=== PATIENT | male | born 1975 | race Caucasian/White ===

== ENCOUNTER 2020-01-04 09:46 | Emergency (ER) | payer MEDICAID ==
[~2020-01-04] VITALS: Ht 182.9 cm; Wt 97.2 kg
[~2020-01-04 09:46] MED LIST: APIX5TAB PO; ASPI81TA45 PO; ATOR40TA78 PO; CEPH-368 PO; ESCI10TA PO; FERR-51 PO; GABA300C10 PO; GLYB1.252 PO; HYDR-3241 PO; HYDR-826 PO; INSU100I13 SQ-INSULIN; LOSA25TA25 PO; METF500T17 PO; METO25TA35 PO; METO25TA91 PO; OXYC15TA60 PO; TICA90TA PO; none per pt
--- NOTE | 2020-01-04 10:20 | NUR ---
PT CAME IN CO OF BODY ACHES, DIZZINIESS, NAUSEA, MURGUIA, AND SOB X 1 WEEK. HE WAS AT A WEDDING A WEEK AGO IN [place] AND "POSSIBLY WAS EXPOSED TO COVID". PT STATES HE HAS BEEN FEELING WORSE THE WEEK GOES ON. PT RESTING IN [facility], CONNECTED TO ALL MONITORING EQUIPMENT. CALL LIGHT WITHIN REACH. WARM BLANKETS PROVIDED.
[2020-01-04 10:46] LABS: BASOPHILS % (AUTO) 0 % (0-1); EOSINOPHILS % (AUTO) 0 % (1-7); LYMPHOCYTES % (AUTO) 11 % (22-44); MEAN CORPUSCULAR HEMOGLOBIN 31.5 pg (27.5-34.5); MEAN CORPUSCULAR HGB CONC 35.1 g/dL (33.2-36.2); MEAN PLATELET VOLUME 7.4 fL (7.4-10.4); MONOCYTES % (AUTO) 7 % (2-9); NEUTROPHILS % (AUTO) 81 % (42-75); PLATELET COUNT 253 x10^3/uL (130-400)
--- NOTE | 2020-01-04 10:53 | NUR ---
PT RESTING IN [facility]. VSS. NAD. NO NEEDS AT THIS TIME
[2020-01-04 10:58] LABS: ALANINE AMINOTRANSFERASE 34 U/L (12-78); ALBUMIN 1.8 g/dL (3.4-5.0); ANION GAP 15 mmol/L (5-15); CALCIUM 7.9 mg/dL (8.5-10.1); CHLORIDE 99 mmol/L (98-107); CREATININE 1.08 mg/dL (0.7-1.3)
[2020-01-04 11:02] LABS: MD SCAN
[2020-01-04 11:05] LABS: ALKALINE PHOSPHATASE 117 U/L (45-117); BILIRUBIN,TOTAL 0.8 mg/dL (0.2-1.0); TOTAL PROTEIN 7.3 g/dL (6.4-8.2)
[2020-01-04 12:45] VITALS: BP 137/79
== END 2020-01-04 12:47 | disposition home or self-care (01) ==
LOC: ED 12:38
DX: J12.9 Viral pneumonia, unspecified (principal); B34.9 Viral infection, unspecified; R00.0 Tachycardia, unspecified; E11.9 Type 2 diabetes mellitus without complications; I25.10 Atherosclerotic heart disease of native coronary artery without angina pectoris; I25.2 Old myocardial infarction; Z98.61 Coronary angioplasty status
CPT/HCPCS: 71045; 80053; 82728; 83615; 84145; 85025; 86140; 87635; 99284

== ENCOUNTER 2020-04-20 14:07 | Emergency (ER) | payer MEDICAID ==
[~2020-04-20] VITALS: Ht 182.9 cm; Wt 95.4 kg
[~2020-04-20 14:07] MED LIST changes: -ESCI10TA PO; +ESCI10TA97 PO
--- NOTE | 2020-04-20 14:46 | NUR ---
Report from ARNOL Barcenas. [facility].
[2020-04-20] MEDS ORDERED: METHOCARBAMOL 750 MG TABLET PO ONE (15:00)
[2020-04-20] MEDS ORDERED: KETOROLAC 30 MG/1 ML IM ONE (15:00)
[2020-04-20] MEDS ORDERED: OXYcodone/APAP 5/325MG TABLET PO ONE (15:00)
[2020-04-20] MEDS ORDERED: KETOROLAC 30 MG/1 ML ONE (15:11)
[2020-04-20] MEDS ORDERED: OXYcodone/APAP 5/325MG TABLET ONE (15:11)
[2020-04-20] MEDS ORDERED: METHOCARBAMOL 500 MG TABLET ONE (15:11)
--- NOTE | 2020-04-20 15:14 | NUR ---
Pt at imaging.
--- NOTE | 2020-04-20 15:30 | NUR ---
Pt back from imaging, medicated per [facility]MAR.
--- NOTE | 2020-04-20 16:56 | NUR ---
Pt to CT again to scan the rest of his back, just lumbar was scanned earlier. Shows compression fracture of L1 but pt reports this is an old injury.
--- NOTE | 2020-04-20 17:45 | NUR ---
Updated pt on results and plan- TLSO back brace- someone will be coming to put that on then he will be discharge.
--- NOTE | 2020-04-20 18:19 | NUR ---
Rep from [facility] here, applied brace and demonstrated/explained to pt how to use and adjust it.
--- NOTE | 2020-04-20 18:27 | NUR ---
Pt agrees with and understands discharge plan and instructions. Will follow up with neurosurgery and wear brace until they state otherwise.
[2020-04-20 18:28] VITALS: BP 130/82
== END 2020-04-20 18:30 | disposition home or self-care (01) ==
LOC: ED 18:23
DX: S32.011A Stable burst fracture of first lumbar vertebra, initial encounter for closed fracture (principal); E11.9 Type 2 diabetes mellitus without complications; I25.2 Old myocardial infarction; I25.10 Atherosclerotic heart disease of native coronary artery without angina pectoris; X58.XXXA Exposure to other specified factors, initial encounter; Y93.89 Activity, other specified; Y92.89 Other specified places as the place of occurrence of the external cause; Y99.8 Other external cause status
CPT/HCPCS: 72072; 72110; 72131; 96372; 99284; J1885